=== PATIENT | female | born 1955 | race Caucasian/White ===

== ENCOUNTER → 2020-01-29 14:36 | Outpatient (CLI) | payer MEDICARE, OTHER, SELFPAY ==
--- NOTE | 2020-01-29 | DI.US.S_ITS ---
PROCEDURE: US CAROTID DOPPLER BI INDICATIONS: BRUITS TECHNIQUE: Color and pulse Doppler interrogation was performed of both carotid systems, with image documentation and velocity measurements. COMPARISON: [facility] Ultrasound, US, US CAROTID BILATERAL, 02/08/2018, 13:02. FINDINGS: Stenosis calculations are based on SRU (Society [employer] in Ultras[employer]) criteria. Right side: Brachial blood pressure: 140/72 mm Hg. Common carotid artery peak systolic velocity: 97 cm/sec. Internal carotid artery peak systolic velocity: 109 cm per 2nd Internal carotid artery end diastolic velocity: 28 cm/sec. External carotid artery peak systolic velocity: 146 cm/sec. ICA/CCA peak systolic ratio: 1.1 . Schulz scale imaging description: Moderate scattered plaque. Percent internal carotid artery stenosis: Less than 50% . Vertebral artery: Flow direction is antegrade. Left side: Brachial blood pressure: 148/74 mm Hg. Common carotid artery peak systolic velocity: 113 cm/sec. Internal carotid artery peak systolic velocity: 119 cm/sec. Internal carotid artery end diastolic velocity: 31 cm/sec. External carotid artery peak systolic velocity: 293 cm/sec. ICA/CCA peak systolic ratio: 1.1 . Schulz scale imaging description: Moderate scattered plaque. Percent internal carotid artery stenosis: Less than 50% . Vertebral artery: Flow direction is antegrade. IMPRESSION: Less than 50% bilateral internal carotid artery stenosis. Dictated by: Jack Luque [facility] Interpreted: Germán Linares MD on 01/29/2020 at 16:28 Approved by: Germán Linares M.D. on 01/29/2020 at 16:52
== END ==
PROVIDERS: PCP Physician Assistant Medical; Referring Provider Internal Medicine Cardiovascular Disease; Visit Provider Internal Medicine Cardiovascular Disease
DX: I65.23 Occlusion and stenosis of bilateral carotid arteries (principal); R09.89 Other specified symptoms and signs involving the circulatory and respiratory systems
CPT/HCPCS: 93880